=== PATIENT | female | born 1970 | race Caucasian/White ===

== ENCOUNTER 2021-08-11 12:48 | Emergency (ER) | payer SELFPAY ==
[~2021-08-11] VITALS: Ht 157.5 cm; Wt 63.5 kg
[2021-08-11] MEDS ORDERED: HYDROCODONE/APAP 5MG-325MG TAB PO ONE (14:00)
[2021-08-11] MEDS ORDERED: FLUORESCEIN SOD(OPTH) 1 MG STRP OP ONE (14:00)
[2021-08-11] MEDS ORDERED: TETRACAINE HCL 0.5% OPTH SOLN 4 ML BTL OP ONE (14:00)
[2021-08-11] MEDS ORDERED: ACYCLOVIR800 MG PO (14:14)
[2021-08-11] MEDS ORDERED: POLYTRIM EYE DR10 ML OD (14:30)
[2021-08-11 14:34] VITALS: BP 120/76
== END 2021-08-11 14:36 | disposition home or self-care (01) ==
LOC: ER 12:53
DX: B02.9 Zoster without complications (principal); H40.9 Unspecified glaucoma
CPT/HCPCS: 99283

== ENCOUNTER 2021-08-28 20:10 | Emergency (ER) | payer OTHER ==
[~2021-08-28] VITALS: Ht 157.5 cm; Wt 63.5 kg
[~2021-08-28 20:10] MED LIST: ACYCLOVIR800 MG PO; POLYTRIM EYE DR10 ML OD
[2021-08-28] MEDS ORDERED: ACETAMINOPHEN 325 MG TAB PO ONE (20:30)
== END 2021-08-28 23:27 | disposition home or self-care (01) ==
LOC: ER 20:12
DX: S00.83XA Contusion of other part of head, initial encounter (principal); S80.02XA Contusion of left knee, initial encounter; W01.0XXA Fall on same level from slipping, tripping and stumbling without subsequent striking against object, initial encounter; Y93.01 Activity, walking, marching and hiking; Y92.89 Other specified places as the place of occurrence of the external cause; H40.9 Unspecified glaucoma; F17.210 Nicotine dependence, cigarettes, uncomplicated
CPT/HCPCS: 70450; 72125; 99283

== ENCOUNTER 2023-06-15 00:26 | Emergency (ER) | payer MEDICARE ==
[~2023-06-15] VITALS: Ht 157.5 cm; Wt 63.5 kg
[~2023-06-15 00:26] MED LIST changes: +NAPROXEN250 MG PO
[2023-06-15 00:33] VITALS: O2SAT 98
[2023-06-15] MEDS ORDERED: KETOROLAC TROMETHAMINE 60 MG/2 ML VIAL ONE (00:39)
[2023-06-15] MEDS: ONDANSETRON HCL 4 MG ORAL DISINTEGRATING TAB PO ONE (00:39)
[2023-06-15] MEDS ORDERED: ONDANSETRON HCL 4 MG ORAL DISINTEGRATING TAB ONE (00:39)
[2023-06-15] MEDS: KETOROLAC TROMETHAMINE 60 MG/2 ML VIAL IM ONE (00:40)
[2023-06-15 01:04] LABS: CLARITY,URINE CLEAR (CLEAR); COLOR,URINE YELLOW (YELLOW)
[2023-06-15 01:05] LABS: BILIRUBIN,URINE NEGATIVE (NEGATIVE); GLUCOSE, URINE NEGATIVE (NEGATIVE); KETONES,URINE NEGATIVE (NEGATIVE); LEUKOCYTE ESTERASE ,URINE NEGATIVE (NEGATIVE); NITRITE,URINE NEGATIVE (NEGATIVE); PH,URINE 7 (5 - 7); PROTEIN,URINE DIPSTICK NEGATIVE (NEGATIVE); URINE UROBILINOGEN 0.2 mg/dL (0.2 - 1)
[2023-06-15 01:36] LABS: RBC,URINE 0-5 /HPF (0-5); WBC,URINE (MAN) 0-5 /HPF (0-5)
[2023-06-15 01:37] LABS: BACTERIA,URINE MODERATE /HPF; EPITHELIAL CELLS,URINE MODERATE /LPF
[2023-06-15] MEDS ORDERED: CIPRO500 MG PO (01:38)
== END 2023-06-15 01:44 | disposition home or self-care (01) ==
LOC: ER 00:30
DX: R10.30 Lower abdominal pain, unspecified (principal); N30.90 Cystitis, unspecified without hematuria; H54.3 Unqualified visual loss, both eyes
CPT/HCPCS: 74176; 81001; 99283; J1885; Q0162

== ENCOUNTER 2024-05-03 00:09 | Emergency (ER) | payer OTHER ==
[~2024-05-03] VITALS: Ht 157.5 cm; Wt 77.1 kg
[~2024-05-03 00:09] MED LIST changes: +BACLOFEN10 MG PO; +BUPROPION HCL150 M2 PO; +CELEXA20 MG PO; +CIPRO500 MG PO; +GABAPENTIN600 MG PO; +OMEPRAZOLE40 MG PO
[2024-05-03 00:53] LABS: BASOPHILS % 0.5 % (0.0-1.0); EOSINOPHILS # (AUTO) 0.1 (0.0-0.4); EOSINOPHILS % 2.2 % (0.0-6.0); HEMATOCRIT 39.8 % (34.2-44.1); HEMOGLOBIN 13.4 g/dL (12.0-16.0); LYMPHOCYTES # (AUTO) 1.6 (1.0-3.2); LYMPHOCYTES % 24.8 % (18.0-39.1); MEAN CORPUSCULAR HEMOGLOBIN 35.2 pg (28-32); MEAN CORPUSCULAR HGB CONC 33.7 g/dL (31-35); MEAN CORPUSCULAR VOLUME 104.5 fL (81-99); MONOCYTES # (AUTO) 0.6 (0.2-0.8); MONOCYTES % 10.1 % (4.4-11.3); NEUTROPHILS # (AUTO) 3.9 (2.1-6.9); NEUTROPHILS % 62.1 % (38.7-80.0); PLATELET COUNT 219 x10e3/uL (140-360); RED BLOOD COUNT 3.81 x10e6/uL (3.6-5.1); RED CELL DISTRIBUTION WIDTH 10.8 % (11.7-14.4); WHITE BLOOD COUNT 6.25 x10e3/uL (4.8-10.8)
[2024-05-03 01:09] LABS: INR 0.94; PROTHROMBIN TIME 13.2 seconds (11.9-14.5)
[2024-05-03 01:10] LABS: PARTIAL THROMBOPLASTIN TIME 27.4 seconds (23.8-35.5)
[2024-05-03 01:16] LABS: ALBUMIN 4.3 g/dL (3.5-5.0); ALBUMIN/GLOBULIN RATIO 1.4 (0.8-2.0); CALCIUM 9.1 mg/dL (8.4-10.2); CREATININE, SERUM 0.89 mg/dL (0.57-1.11); TOTAL PROTEIN 7.3 g/dL (6.5-8.1)
[2024-05-03] MEDS: Morphine 2mg Syringe 2 MG/ML SYR IV ONE (02:15)
[2024-05-03 03:18] VITALS: PULSE 67; RESP 18; TEMP 98.3; O2SAT 99
== END 2024-05-03 03:50 | disposition other institution (70) ==
LOC: ER 00:57
DX: S00.83XA Contusion of other part of head, initial encounter (principal); H54.62 Unqualified visual loss, left eye, normal vision right eye; R42 Dizziness and giddiness; W01.0XXA Fall on same level from slipping, tripping and stumbling without subsequent striking against object, initial encounter; Y93.01 Activity, walking, marching and hiking; Y92.89 Other specified places as the place of occurrence of the external cause; J44.9 Chronic obstructive pulmonary disease, unspecified; H40.9 Unspecified glaucoma; F32.A Depression, unspecified; F17.210 Nicotine dependence, cigarettes, uncomplicated
CPT/HCPCS: 36415; 70450; 70486; 72125; 80053; 85025; 85610; 85730; 99284; J2270

== ENCOUNTER 2024-05-21 23:53 | Emergency (ER) | payer OTHER ==
[~2024-05-21] VITALS: Ht 157.5 cm; Wt 77.1 kg
[2024-05-22 00:01] VITALS: PULSE 86; RESP 16; TEMP 98.2; O2SAT 100
[2024-05-22] MEDS ORDERED: NAPROSYN500 MG PO (00:12)
== END 2024-05-22 00:15 | disposition home or self-care (01) ==
LOC: ER 05-22 00:03
DX: M54.9 Dorsalgia, unspecified (principal); G89.29 Other chronic pain; W18.39XA Other fall on same level, initial encounter; Y92.89 Other specified places as the place of occurrence of the external cause; J44.9 Chronic obstructive pulmonary disease, unspecified; H40.9 Unspecified glaucoma; F32.A Depression, unspecified; F17.210 Nicotine dependence, cigarettes, uncomplicated
CPT/HCPCS: 99282